=== PATIENT | female | born 1970 | race Asian ===

== ENCOUNTER → 2024-03-16 | Emergency (ER) | payer BC ==
[~2024-03-16] VITALS: Ht 162.6 cm; Wt 44.9 kg
[~2024-03-16] MED LIST: TETANUS & DIPHTHERIA TOX,ADULT 0.5 ML VIAL IM STA
== END | disposition left against medical advice (07) ==
LOC: ER 11:52
DX: S00.81XA Abrasion of other part of head, initial encounter (principal); S80.211A Abrasion, right knee, initial encounter; V00.831A Fall from motorized mobility scooter, initial encounter; Y93.I9 Activity, other involving external motion; Y92.413 State road as the place of occurrence of the external cause